=== PATIENT | female | born 1935 | race Caucasian/White ===

== ENCOUNTER 2017-08-29 20:28 | Emergency (ER) | payer OTHER ==
[~2017-08-29] VITALS: Ht 162.6 cm; Wt 72.0 kg
[~2017-08-29 20:28] MED LIST: ACET-1311 PO; AMLO-110 PO; ASPEC81 PO; ATEN-175 PO; CNT PO; CRS20 PO; RQPUNK; SODIUM CHLORIDE 0.9% 1000ML 1,000 ML IV SCH; TRAM-10 PO; [UNRECOGNIZED DRUG - OTHER]
[2017-08-29] MEDS ORDERED: SUCCINYLCHOLINE CHLORIDE 20 MG/ML 10 ML VIAL IV ONE (20:30)
[2017-08-29] MEDS ORDERED: ETOMIDATE 2 MG/ML 20 ML VIAL IV ONE (20:30)
[2017-08-29] MEDS ORDERED: VECURONIUM BROMIDE 10 MG VIAL IV ONE (20:30)
[2017-08-29] MEDS ORDERED: LABETALOL HCL IV 5 MG/ML 20ML IV STA (20:45)
[2017-08-29] MEDS ORDERED: LABETALOL HCL IV 5 MG/ML 20ML IV ONE (20:46)
[2017-08-29 20:52] VITALS: Ht 162.6 cm; Wt 72.0 kg
[2017-08-29 21:00] LABS: BASO % 0.3 %; BASO ABS # 0.02 K/uL (0-0.2); COMPLETE YES; EOS % 3.7 %; HEMATOCRIT 41.2 % (37-47); IG% 0.1 %; LYMPH ABS # 2.01 K/uL (1.2-3.4); MEAN CELL VOLUME 87.1 fL (80-100); MEAN CORPUSCULAR HEMOGLOBIN 29.6 pg (25-34); MEAN PLATELET VOLUME 10.1 fL (7.4-10.4); MONO % 6.3 %; NEUT % 59.6 %; PLATELET COUNT 205 K/uL (130-400); RED BLOOD COUNT 4.73 M/uL (4.2-5.4); WHITE BLOOD COUNT 6.69 K/uL (4.8-10.8)
--- NOTE | 2017-08-29 21:00 | DIAGNOSTIC IMAGING REPORT ---
HEAD CT NONCONTRAST CT DOSE: 623.48 mGy.cm HISTORY: STROKE TECHNIQUE: Multiaxial CT images of the head were performed without the use of intravenous contrast. Automated exposure control was utilized for this study. A dose lowering technique was utilized adhering to the principles of ALARA. Comparison: None. Findings: The paranasal sinuses and mastoid air cells are clear. The calvarium and skull base are intact. There is a 6.0 x 4.1 cm left temporoparietal intraparenchymal hematoma. This results in 5 mm of right midline shift and mass effect along the temporal horn of the left lateral ventricle. There is an associated small left subdural hematoma demonstrating a maximal thickness of 7 mm. Impression: 1. A 6.0 x 4.1 cm left temporoparietal intraparenchymal hematoma. This results in 5 mm of right midline shift. Recommend follow-up to ensure complete resolution and to exclude the less likely possibility of an underlying mass. 2. There is also a small left subdural hematoma with a maximal thickness of 7 mm. 3. These findings were discussed with Dr. Garcia at 9:00 PM on 08/29/2017. Electronically signed by: Ephraim Tinoco M.D. 08/29/2017 8:58 PM Dictated Date/Time: 08/29/2017 8:52 PM
[2017-08-29] MEDS ORDERED: ONDANSETRON INJ 2 MG/ML 2 ML VIAL IV STA (21:06)
[2017-08-29] MEDS ORDERED: NiCARDipine IV 25 MG in SODIUM CHLORIDE 0.9% 250ML 240 ML IV STA (21:06)
[2017-08-29 21:13] LABS: INR 0.9 (0.9-1.1)
[2017-08-29] MEDS ORDERED: NiCARDipine IV 25 MG in SODIUM CHLORIDE 0.9% 250ML 240 ML IV PRN (21:15)
[2017-08-29] MEDS ORDERED: MANNITOL 20% 500 ML BAG IV STA (21:17)
[2017-08-29] MEDS ORDERED: RAPID SEQUENCE INDUCTION BAG ONE (21:19)
[2017-08-29] MEDS ORDERED: CHOL1000 PO (21:25)
[2017-08-29] MEDS ORDERED: ASPI81TA28 PO (21:25)
[2017-08-29] MEDS ORDERED: CLBPO15 TOP (21:25)
[2017-08-29] MEDS ORDERED: MULT-506 PO (21:25)
[2017-08-29] MEDS ORDERED: CARV12.5 PO (21:25)
[2017-08-29] MEDS ORDERED: CLR10 PO (21:25)
[2017-08-29] MEDS ORDERED: POTA10CA28 PO (21:25)
[2017-08-29] MEDS ORDERED: FURO-85 PO (21:25)
[2017-08-29] MEDS ORDERED: MANNITOL 25% 50 ML VIAL IV ONE (21:30)
[2017-08-29] MEDS ORDERED: 0.2 MICRON FILTER SET 1 EA IV STA ×2 (21:32)
--- NOTE | 2017-08-29 21:33 | DIAGNOSTIC IMAGING REPORT ---
CHEST ONE VIEW PORTABLE HISTORY: Cough. EVAL FOR PNA COMPARISON: None. FINDINGS: Mild diffuse interstitial thickening which may be chronic. No focal lung consolidations. The heart is mildly enlarged. No pleural effusions. No pneumothorax. Low lung volumes. Thoracolumbar spinal fusion hardware. IMPRESSION: 1. Mild enlargement of the cardiac silhouette. 2. Mild interstitial thickening which is likely chronic. No focal lung consolidations to suggest pneumonia. Electronically signed by: Ephraim Tinoco M.D. 08/29/2017 9:31 PM Dictated Date/Time: 08/29/2017 9:30 PM
[2017-08-29 21:34] LABS: BLOOD UREA NITROGEN 23 mg/dl (7-18); BUN/CREATININE RATIO 18.2 (10-20); CALCIUM 8.9 mg/dl (8.5-10.1); CARBON DIOXIDE 23 mmol/L (21-32); CHLORIDE 105 mmol/L (98-107); CREATININE 1.28 mg/dl (0.60-1.20); GLUCOSE 223 mg/dl (70-99); MAGNESIUM 2.1 mg/dl (1.8-2.4); POTASSIUM 3.5 mmol/L (3.5-5.1); SODIUM 138 mmol/L (136-145)
[2017-08-29 21:39] LABS: CKMB/CK RATIO 2.9 (0-3.0)
[2017-08-29] MEDS ORDERED: LORAZEPAM 2 MG/ML 1 ML VIAL IV STA (21:40)
[2017-08-29] MEDS ORDERED: LORAZEPAM 2 MG/ML 1 ML VIAL ONE (21:41)
[2017-08-29 21:48] VITALS: PULSE 61; O2SAT 99
[2017-08-29 21:51] VITALS: BP 147/66
--- NOTE | 2017-08-29 22:14 | DIAGNOSTIC IMAGING REPORT ---
CHEST ONE VIEW PORTABLE HISTORY: Endotracheal tube placement. COMPARISON: Chest 08/29/2017. FINDINGS: No pneumothorax. No pleural effusions. Thoracolumbar spinal fusion hardware. The heart remains stable in size. No focal lung consolidations to suggest pneumonia. The endotracheal tube terminates approximately 3 cm from the sandy. Stable mild diffuse interstitial thickening. No new focal lung consolidations. IMPRESSION: The endotracheal tube terminates 3 cm from the sandy. Electronically signed by: Ephraim Tinoco M.D. 08/29/2017 10:13 PM Dictated Date/Time: 08/29/2017 10:12 PM
--- NOTE | 2017-08-29 23:30 | EMERGENCY ROOM VISIT NOTE ---
History Report prepared by Arisibfroylan: Maricruz Rose Under the Supervision of: Dr. Tyson Garcia M.D. First contact with patient: 20:26 Chief Complaint: STROKE SYMPTOMS Stated Complaint: Stroke Alert History of Present Illness The patient is an 82 year old female who presents to the Emergency Room with complaints of possible stroke symptoms. She was brought to the ED via EMS. EMS reports she developed right sided weakness, confusion and difficulty speaking this evening, so her family called an ambulance. Her last known well was at 1800. She was noted to be hypertensive in the field. The patient states she has a headache currently. The family had denied any fall to EMS earlier. She takes no daily blood thinners. EMS states the patients family is on the way to the ED. Additional history is unable to be obtained secondary to the patients current mental status. Source of History: patient, EMS Onset: 1800 this evening Position: other (global) Timing: constant Associated Symptoms: + headache, + weakness (right side of body) Review of Systems See HPI for pertinent positives & negatives. ROS is limited secondary to patients current mental status. Past Medical & Surgical Medical Problems: (1) Hyperlipidemia (2) Hypertension Social History Alcohol Use: none Drug Use: none Marital Status: Housing Status: lives with family Occupation Status: retired Current/Historical Medications Scheduled Aspirin (Aspirin Ec), 81 MG PO DAILY Carvedilol (Coreg), 12.5 MG PO BID Cholecalciferol (Vitamin D3), 1 TAB PO DAILY Furosemide (Lasix), 20 MG PO BID Multivitamin (Multivitamin), 1 TAB PO DAILY Potassium Chloride (Micro-K Ext Rel), 10 MEQ PO DAILY Scheduled PRN Clobetasol Propionate (Clobetasol Propionate), 1 APPLN TOP BID PRN for flares Loratadine (Claritin), 10 MG PO DAILY PRN for allergies/cough Allergies Coded Allergies: Baclofen (Verified Allergy, Unknown, fatigue, 08/29/17) Gabapentin (Verified Allergy, Unknown, hives, 08/29/17) Nabumetone (Verified Allergy, Unknown, HIVES, 08/29/17) Physical Exam Vital Signs Date Time Temp Pulse Resp B/P (MAP) Pulse Ox O2 Delivery O2 Flow Rate FiO2 08/29/17 21:51 147/66 08/29/17 21:48 61 22 99 08/29/17 21:46 185/81 08/29/17 21:43 63 22 100 08/29/17 21:41 217/99 08/29/17 21:38 58 22 235/115 100 08/29/17 21:35 236/119 08/29/17 21:33 67 23 100 08/29/17 21:31 201/83 08/29/17 21:28 67 18 100 08/29/17 21:23 63 15 97 08/29/17 21:18 64 16 99 08/29/17 21:17 211/91 08/29/17 21:13 63 16 98 08/29/17 21:08 62 18 200/104 98 08/29/17 21:03 81 16 211/139 99 08/29/17 20:58 67 20 08/29/17 20:56 66 08/29/17 20:52 67 18 214/99 95 Nasal Cannula 2.0 08/29/17 20:51 196/84 Physical Exam Constitutional: Vital signs reviewed. Eyes: Pupils are equal round reactive to light. Conjunctiva are noninjected. ENT: Cephalic atraumatic. Pharynx is clear without erythema or exudate. Mucous membranes are moist. Neck supple without meningeal signs. Respiratory: Clear to auscultation bilaterally. Breath sounds are equal bilaterally. Cardiovascular: Regular rate and rhythm. No rubs or gallops. GI: Soft, nondistended and nontender. Bowel sounds are present. Musculoskeletal: No peripheral edema. No lower extremity tenderness. Integumentary: No cyanosis. Neurological: The patient is awake and alert. She moves her left side without any difficulty. She has no facial droop. She follows most commands but appears to have shanell-neglect of the right side. She will move her right hand but not when asked to. She does not notice you when you're on the right side of her body. Her GCS is 13 due to her verbal response. Psychiatric: Unable to assess. Medical Decision & Procedures ER Provider Diagnostic Interpretation: Radiology results as stated below per my review and the radiologist's interpretation: HEAD CT NONCONTRAST CT DOSE: 623.48 mGy.cm HISTORY: STROKE TECHNIQUE: Multiaxial CT images of the head were performed without the use of intravenous contrast. Automated exposure control was utilized for this study. A dose lowering technique was utilized adhering to the principles of ALARA. Comparison: None. Findings: The paranasal sinuses and mastoid air cells are clear. The calvarium and skull base are intact. There is a 6.0 x 4.1 cm left temporoparietal intraparenchymal hematoma. This results in 5 mm of right midline shift and mass effect along the temporal horn of the left lateral ventricle. There is an associated small left subdural hematoma demonstrating a maximal thickness of 7 mm. Impression: 1. A 6.0 x 4.1 cm left temporoparietal intraparenchymal hematoma. This results in 5 mm of right midline shift. Recommend follow-up to ensure complete resolution and to exclude the less likely possibility of an underlying mass. 2. There is also a small left subdural hematoma with a maximal thickness of 7 mm. 3. These findings were discussed with Dr. Garcia at 9:00 PM on 08/29/2017. Electronically signed by: Ephraim Tinoco M.D. 08/29/2017 8:58 PM CHEST ONE VIEW PORTABLE HISTORY: Cough. EVAL FOR PNA COMPARISON: None. FINDINGS: Mild diffuse interstitial thickening which may be chronic. No focal lung consolidations. The heart is mildly enlarged. No pleural effusions. No pneumothorax. Low lung volumes. Thoracolumbar spinal fusion hardware. IMPRESSION: 1. Mild enlargement of the cardiac silhouette. 2. Mild interstitial thickening which is likely chronic. No focal lung consolidations to suggest pneumonia. Electronically signed by: Ephraim Tinoco M.D. 08/29/2017 9:31 PM Laboratory Results 08/29/17 20:02 Red Blood Count 4.73, Mean Corpuscular Volume 87.1, Mean Corpuscular Hemoglobin 29.6, Mean Corpuscular Hemoglobin Concent 34.0, Mean Platelet Volume 10.1, Neutrophils (%) (Auto) 59.6, Lymphocytes (%) (Auto) 30.0, Monocytes (%) (Auto) 6.3, Eosinophils (%) (Auto) 3.7, Basophils (%) (Auto) 0.3, Neutrophils # (Auto) 3.98, Lymphocytes # (Auto) 2.01, Monocytes # (Auto) 0.42, Eosinophils # (Auto) 0.25, Basophils # (Auto) 0.02 08/29/17 20:02 Test 08/29/17 20:02 White Blood Count 6.69 K/uL (4.8-10.8) Red Blood Count 4.73 M/uL (4.2-5.4) Hemoglobin 14.0 g/dL (12.0-16.0) Hematocrit 41.2 % (37-47) Mean Corpuscular Volume 87.1 fL (80-100) Mean Corpuscular Hemoglobin 29.6 pg (25-34) Mean Corpuscular Hemoglobin Concent 34.0 g/dl (32-36) Platelet Count 205 K/uL (130-400) Mean Platelet Volume 10.1 fL (7.4-10.4) Neutrophils (%) (Auto) 59.6 % Lymphocytes (%) (Auto) 30.0 % Monocytes (%) (Auto) 6.3 % Eosinophils (%) (Auto) 3.7 % Basophils (%) (Auto) 0.3 % Neutrophils # (Auto) 3.98 K/uL (1.4-6.5) Lymphocytes # (Auto) 2.01 K/uL (1.2-3.4) Monocytes # (Auto) 0.42 K/uL (0.11-0.59) Eosinophils # (Auto) 0.25 K/uL (0-0.5) Basophils # (Auto) 0.02 K/uL (0-0.2) RDW Standard Deviation 44.0 fL (36.4-46.3) RDW Coefficient of Variation 13.7 % (11.5-14.5) Immature Granulocyte % (Auto) 0.1 % Immature Granulocyte # (Auto) 0.01 K/uL (0.00-0.02) Prothrombin Time 10.0 SECONDS (9.0-12.0) Prothromb Time International Ratio 0.9 (0.9-1.1) Activated Partial Thromboplast Time 24.7 SECONDS (21.0-31.0) Partial Thromboplastin Ratio 1.0 Anion Gap 10.0 mmol/L (3-11) Est Creatinine Clear Calc Drug Dose 32.4 ml/min Estimated GFR () 44.8 Estimated GFR (Non- 38.6 BUN/Creatinine Ratio 18.2 (10-20) Osmolality 302 mOsm/kg (280-300) Calcium Level 8.9 mg/dl (8.5-10.1) Magnesium Level 2.1 mg/dl (1.8-2.4) Total Creatine Kinase 92 U/L (26-192) Creatine Kinase MB 2.7 ng/ml (0.5-3.6) Creatine Kinase MB Ratio 2.9 (0-3.0) Troponin I < 0.015 ng/ml (0-0.045) Laboratory results as reviewed by me. Medications Administered Medications (Trade) Dose Ordered Sig/Rubén Route Start Time Stop Time Status Last Admin Dose Admin Labetalol HCl (Normodyne IV) 10 mg NOW STAT IV 08/29/17 20:45 08/29/17 20:48 DC 08/29/17 20:51 10 MG Ondansetron HCl (Zofran Inj) 4 mg NOW STAT IV 08/29/17 21:06 08/29/17 21:08 DC 08/29/17 21:12 4 MG Nicardipine HCl 25 mg/Sodium Chloride 250 ml @ 0 mls/hr Q0M PRN IV 08/29/17 21:15 09/28/17 21:14 08/29/17 21:40 5 MLS/HR Mannitol (Mannitol 25%) 75 gm ONE ONCE IV 08/29/17 21:30 08/29/17 21:32 DC 08/29/17 21:55 75 GM Lorazepam (Ativan Inj) 1 mg NOW STAT IV 08/29/17 21:40 08/29/17 21:41 DC 08/29/17 21:43 1 MG Procedure Endotracheal Intubation Indication: Altered Mental Status, Airway Protection for ICH The patient was on 100% oxygen via NRB prior to the procedure. Suction, airway equipment, RSI drugs, respiratory equipment, and appropriate personnel were prepared prior to the initiation of the procedure. A time out was taken. Induction was performed with 15 mg Etomidate, 120 mg Succinylcholine. After observing the clinical benefit of the medications, the airway was easily visualized utilizing a glide scope. A 7.5 size ETT tube was placed atraumatically to 23 cm using standard technique. The cuff inflated without signs of malfunction. There were bilateral breath sounds, positive colormetric change, no gastric sounds, a good capnography waveform, and post procedure pulse oximetry was 100%. Post intubation sedation and paralysis was administered using Ativan and Vecuronium. There were no complications. ECG Indication: weakness Rate (beats per minute): 65 Rhythm: sinus rhythm Findings: 1st degree AV block, other (Nonspecific ST changes) ED Course 2025: NSS 1000 ml @ 50 mls/hr IV. 2032: The patient was evaluated in room B1. A complete history and physical exam was performed. 2044: Labetalol HCl 10 mg IV. 2045: I spoke with the patients daughter Anuradha. She is agreeable to transfer to [facility] in [place]. The patients daughter denies any recent falls or trauma. 2057: I reevaluated the patient. Her blood pressure is 196/84 and she is still confused. 2099: I discussed the patients case with Dr. Sharpe, [facility]. They have accepted the patient as a transfer to [facility] in [place]. 2103: I discussed the patients case with Dr. Chaudhary, [facility] Critical [facility]. They have accepted the patient as a transfer to [facility] in [place]. The patient will be further evaluated. 2105: Nursing states the patient vomited all over the room. 2105: Zofran 4 mg IV, Nicardipine HCl 25 mg/NSS 250 ml @ 0 mls/hr IV. 2111: The patients daughter is at the bedside. The patient is still confused but occasionally says intelligible words. Her blood pressure is 200 systolic. Pharmacy has been called for a Nicardipine drip. 2114: Nicardipine HCl 25 mg/NSS 250 ml @ 0 mls/hr IV. 2116: Dr. Chaudhary called back. He requests the patient be intubated for airway protection. He is recommending 1 mg/kg Mannitol, then have her started on Nicardipine. 2129: Mannitol 75 gm IV. 2137: The patient is still hypertensive, so we will start the Nicardipine drip. 2139: Ativan 1 mg IV. 2152: I reevaluated the patient. Life flight is in the room and they are getting the patient ready for transfer. She is on a Nicardipine drip and is also on Mannitol. Medical Decision This is an 82-year-old female presents with altered mental status and right- sided neglect. Differential diagnosis includes intracranial hemorrhage, TIA, CVA, metabolic derangement, intracranial mass. I did perform a limited focused review of portions of the patient's old chart on the electronic medical record. The patient has had no recent pertinent visits to this hospital. I did provide prehospital medical command for the patient. A stroke alert was immediately called. I did immediately evaluate the patient on arrival as noted above. She was taken directly to CT scan. I did order a CT of the head. I did review the images myself as well as the radiology report as described above. He does have a large intraparenchymal hemorrhage with subdural hemorrhage. There is some mild midline shift and mass effect. The patient was placed on a continuous medical superintendent. She is significantly hypertensive. I did treat patient with labetalol IV. Her blood pressure did improve somewhat. She did vomit later and was given IV Zofran. Her blood pressure did come up. I did order and personally review the patient's 12-lead EKG and chest x-ray as described above. I did order and review the patient's blood work as noted in the electronic medical record. I did discuss the case with the neurologist and ICU doctor at [facility]. They recommended a Cardene drip. Due to her mental status declined we discussed intubation as well. The neurologist requested that she be given IV mannitol. I did discuss the recommendations with the patient's daughter who is now at the bedside. She did confirm that there was no trauma in that the patient spontaneously developed these symptoms. She had no complaints earlier. The patient is a full code. The daughter assented to intubation. I did perform rapid sequence intubation as described above. There were no complications. The patient was given IV mannitol and started on a Cardene drip. She was sedated with Ativan IV and given vecuronium 10 mg IV. Post intubation x-ray was obtained and reviewed by myself. The patient was transferred via helicopter to [facility]. Head Trauma GCS Score: 13 (inappropriate words ) Medication Reconcilliation Current Medication List: was personally reviewed by me Blood Pressure Screening Patient's blood pressure: Elevated blood pressure Blood pressure disposition: Referred to PCP Consults Time Called: 2057 Consulting Physician: Dr. Sharpe, [facility] Returned Call: 2099 I discussed the patients case with Dr. Sharpe, [facility]. They have accepted the patient as a transfer to [facility] in [place]. Additional Consults: Time Called: 2102 Consulted Physician: Dr. Chaudhary, [facility] ED Returned Call: 2103 Additional Comments: I discussed the patients case with Dr. Chaudhary, [facility]. They have accepted the patient as a transfer to [facility] in [place]. The patient will be further evaluated. Impression Primary Impression: Intracranial hemorrhage Additional Impression: Subdural hematoma Critical Care I have personally spent 40 minutes of critical care time in the direct management of this patient. This includes bedside care, interpretation of diagnostic studies, and testing, discussion with consultants, patient, and family members, and other required patient management activities. This 40 minutes is in excess of all separately billable procedures. Scribe Attestation The scribe's documentation has been prepared under my direct and personally reviewed by me in its entirety. I confirm that the note above accurately reflects all work, treatment, procedures, and medical decision making performed by me. Departure Information Dispostion Transfer Acute Care Facility (The patient has been accepted as a transfer to [facility] in [place]) Patient Instructions My [facility] Problem Qualifiers
== END 2017-08-29 22:25 | disposition short-term general hospital (02) ==
LOC: EDBD 20:28 → C.EDB 20:29
DX: I62.00 Nontraumatic subdural hemorrhage, unspecified (principal); I44.0 Atrioventricular block, first degree; R11.10 Vomiting, unspecified; I10 Essential (primary) hypertension; E78.5 Hyperlipidemia, unspecified; Z79.82 Long term (current) use of aspirin; Z79.899 Other long term (current) drug therapy; Z88.8 Allergy status to other drugs, medicaments and biological substances